=== PATIENT | male | born 1950 | race Two or more races ===

== ENCOUNTER 2020-05-08 05:45 | Day surgery (SDC) | payer OTHER ==
[~2020-05-08 05:45] MED LIST: CARAFATE1 GM PO; COZAAR100 MG PO; LASIX20 MG PO; NIFEDIPINE20 MG PO; PRILOSEC OTC20 MG PO; RESTORIL30 M1 PO; VOLTAREN-XR100 MG PO; ZOCOR20 MG PO
[2020-05-08] MEDS ORDERED: COLACE100 MG PO (10:40)
[2020-05-08] MEDS ORDERED: PERCOCET 5-3251 EACH PO (10:40)
[2020-05-08] MEDS ORDERED: NEURONTIN300 MG PO (10:40)
== END 2020-05-08 14:30 | disposition home or self-care (01) ==
LOC: CIR.AMB 05:45
PROVIDERS: ATTEND Surgery
DX: K64.8 Other hemorrhoids (principal); Z20.822 Contact with and (suspected) exposure to COVID-19